=== PATIENT | female | born 1955 | race Caucasian/White ===

== ENCOUNTER 2020-12-12 07:48 | Outpatient (CLI) | payer BC, SELFPAY ==
[2020-12-12 09:06] LABS: SARS-CoV-2 RNA PCR Negative (Negative)
== END 2020-12-12 07:49 | disposition home or self-care (01) ==
LOC: CHSLAB 07:53
PROVIDERS: PCP Family Medicine; Visit Provider Family Medicine
DX: Z20.822 Contact with and (suspected) exposure to COVID-19 (principal)
CPT/HCPCS: C9803; U0003; U0005